=== PATIENT | female | born 1955 | race Caucasian/White ===

== ENCOUNTER → 2018-11-13 | Outpatient (CLI) | payer OTHER ==
[~2018-11-13] VITALS: Ht 162.6 cm; Wt 65.8 kg
[~2018-11-13] MED LIST: BODY AND VISION PO; CO Q-10200 MG PO; COMPOUNDED HORMONE PO; FISH OIL 1,0001 EAC1 PO; HYDROCHLOROTHIA25 M2 PO; MAGONATE54 MG/5 ML PO; QUDEXY XR25 MG PO; SYNTHROID75 MCG PO; VITAMIN B COMP1 EACH PO; VITAMIN C1000 MG PO; ZOLOFT50 MG PO; [UNRECOGNIZED DRUG - OTHER] PO; [UNRECOGNIZED DRUG - OTHER] PO; [UNRECOGNIZED DRUG - OTHER] PO
== END | disposition home or self-care (01) ==
LOC: GI 08:23
DX: Z12.11 Encounter for screening for malignant neoplasm of colon (principal); K64.8 Other hemorrhoids; I10 Essential (primary) hypertension; G43.909 Migraine, unspecified, not intractable, without status migrainosus; K21.9 Gastro-esophageal reflux disease without esophagitis; F32.9 Major depressive disorder, single episode, unspecified; E06.9 Thyroiditis, unspecified; Z88.8 Allergy status to other drugs, medicaments and biological substances; Z98.890 Other specified postprocedural states; Z79.899 Other long term (current) drug therapy
CPT/HCPCS: 62110; 62900